=== PATIENT | female | born 1970 | race Caucasian/White ===

== ENCOUNTER → 2017-12-04 | Outpatient (CLI) | payer OTHER | LOC: M RAD 08:30 | DX: R10.9 Unspecified abdominal pain (principal) ==

== ENCOUNTER → 2019-01-05 | Outpatient (CLI) | payer OTHER ==
[~2019-01-05] MED LIST: CELE1CAP4 PO; CLON0.5T8 PO; DICL13PA TD; FOLI1TAB11 PO; ISOVUE-370 76% 100ML VIAL (Q9967) As Ordered ONE; LAMO200T2 PO; LIDO1PAD TOP; NEUR300C PO; OYST1TAB PO; PRENTAB43 PO; TOPA100T12 PO; TOPA200T7 PO
--- NOTE | 2019-01-06 04:27 | REP ---
Clinical: Left upper quadrant pain. Technique: Axial contrast enhanced images from the lung bases to the pubic symphysis using 100 ml Isovue 370 intravenous contrast material with coronal and sagittal re-formations. Comparison: 12/04/2017. Findings: Lung bases are clear. Visualized heart and pericardium normal. Liver, spleen, pancreas, bilateral adrenal glands and kidneys are normal. Splenic calcification likely represents prior granulomatous disease. The patient is status post cholecystectomy. The enteric system is without obstruction or acute inflammatory process. A small sub centimeter fat containing periumbilical hernia is suggested. Pelvis demonstrates normal bladder and evidence for prior partial hysterectomy. Small right ovarian cysts likely physiologic. No ascites. No free air. No obvious adenopathy. Abdominal aorta without aneurysm or dissection. Musculoskeletal structures without focal osseous abnormality. Impression: 1. No acute abdominopelvic pathology appreciated. 2. Evidence of prior cholecystectomy and partial hysterectomy. 3. Subcentimeter fat containing periumbilical hernia. Electronically Signed by Enrico Juarez MD 01/06/2019 04:18 A
== END ==
LOC: M RAD 15:30
PROVIDERS: ATTEND Internal Medicine
DX: K42.9 Umbilical hernia without obstruction or gangrene (principal); Z90.49 Acquired absence of other specified parts of digestive tract; Z90.79 Acquired absence of other genital organ(s)
CPT/HCPCS: 74177; Q9967

== ENCOUNTER → 2019-02-23 | Outpatient (CLI) | payer OTHER ==
[~2019-02-23] MED LIST changes: -ISOVUE-370 76% 100ML VIAL (Q9967) As Ordered ONE
--- NOTE | 2019-02-23 13:23 | REPMRS ---
Patient History The patient states she has not had a clinical breast exam in over a year. Family history of breast cancer in maternal aunt, breast cancer at age 39 in sister. Digital Mammo Screening Bilat: February 23, 2019 - Exam #: [id number] Bilateral CC and MLO view(s) were taken. Technologist: Any [employer] Technologist Prior study comparison: February 01, 2018, digital mammo diagnostic bilateral performed at [facility]. November 23, 2015, bilateral digital mammo screening bilat performed at [facility]. FINDINGS: The breast tissue is extremely dense which could obscure a lesion on mammography. There is no evidence of cancer on this mammogram. No significant changes when compared with prior studies. Assessment: BI-RADS/ACR category 2 mammogram. Benign Findings. Recommendation Routine screening mammogram of both breasts in 1 year (for women over age 40). This mammogram was interpreted with the aid of an FDA-approved computer-aided dectection system. THE LIFETIME RISK OF BREAST CANCER IS 21.4%, THEREFORE SUPPLEMENTAL SCREENING MRI OF THE BREASTS IS RECOMMENDED IN 6 MONTHS. Electronically Signed By: Robin Ledbetter MD 02/23/19 [id number]
== END ==
LOC: M RAD 10:34
PROVIDERS: ATTEND Internal Medicine
DX: Z12.31 Encounter for screening mammogram for malignant neoplasm of breast (principal); Z80.3 Family history of malignant neoplasm of breast

== ENCOUNTER → 2019-05-20 | Outpatient (CLI) | payer OTHER ==
[~2019-05-20] MED LIST changes: +PROHANCE 279.3MG/ML 5ML VIAL (A9576) As Ordered ONE
--- NOTE | 2019-05-20 12:04 | REP ---
MRI BILATERAL BREASTS WITH AND WITHOUT CONTRAST: COMPARISON: MRI 03/22/2015 and mammogram 02/23/2019. History of dense breasts. Lifetime risk of breast cancer, 21.4%. Family history of breast cancer in maternal aunt and sister. TECHNIQUE: Multiple sequences obtained in the axial, coronal, and sagittal planes prior to and following the intravenous administration of 10 mL ProHance. Images are evaluated in [employer] software, including axial T1 fat sat dynamic post-minesh images, subtraction images, CAD images, color overlay images, and MIP reconstruction images. There is an extreme pattern of fibroglandular tissue again seen bilaterally. There is moderate background parenchymal enhancement. Several small cysts are seen bilaterally. The largest is on the right medially measuring about 6 mm in diameter. Dilated ducts are seen in the left retroareolar region. There are small scattered hyperintense nodules, which demonstrate a persistent-type enhancement, consistent with small fibroadenomas. No suspicious enhancing mass is seen. No morphologic abnormality is seen. No axillary adenopathy is seen. IMPRESSION: BI-RADS category 2, benign bilateral breast MRI. Small cysts and fibroadenomas bilaterally. No suspicious enhancing mass or morphologic abnormality. Yearly supplemental screening MRI of the breasts is recommended for patients with lifetime risk of breast cancer of 20% or greater. Electronically Signed by Robin Ledbetter MD 05/24/2019 05:28 P
== END ==
LOC: M RAD 09:42
PROVIDERS: ATTEND Internal Medicine
DX: Z85.3 Personal history of malignant neoplasm of breast (principal)
CPT/HCPCS: A9576; C8908

== ENCOUNTER 2019-08-08 09:37 | Day surgery (SDC) | payer OTHER ==
[~2019-08-08] VITALS: Ht 162.6 cm; Wt 55.1 kg
[~2019-08-08 09:37] MED LIST changes: +KP P1TAB PO; +NS 1,000 ML IV ONE; -PROHANCE 279.3MG/ML 5ML VIAL (A9576) As Ordered ONE
[2019-08-08] MEDS ORDERED: PROPOFOL 200 MG/20 ML VIAL As Ordered ONE ×2 (10:00→11:56)
[2019-08-08] MEDS ORDERED: LIDOCAINE 2% INJ 100 MG/5 ML SDV (FOR ANES.) As Ordered ONE (10:00)
[2019-08-08] MEDS ORDERED: DOXY100C PO (10:01)
--- NOTE | 2019-08-08 11:20 | ROOR ---
Patient Name: Jalyn Tenorio Procedure Date: 08/08/2019 10:56 AM Date of : 1970 Age: 49 Room: [facility] Gender: Female Note Status: Finalized Procedure: Total Colonoscopy to Cecum Indications: Screening for colorectal malignant neoplasm Providers: Federico Nassar MD Referring MD: BERTRAM BURDEN MD Requesting Provider: Medicines: Monitored Anesthesia Care Complications: No immediate complications. Procedure: Pre-Anesthesia Assessment: - The heart rate, respiratory rate, oxygen saturations, blood pressure, adequacy of pulmonary ventilation, and response to care were monitored throughout the procedure. The Colonoscope was introduced through the anus and advanced to the cecum, identified by appendiceal orifice and ileocecal valve. The colonoscopy was performed without difficulty. The patient tolerated the procedure well. The quality of the bowel preparation was excellent. Findings: The perianal and digital rectal examinations were normal. Non-bleeding internal hemorrhoids were found during retroflexion. The hemorrhoids were small and Grade I (internal hemorrhoids that do not prolapse). No other significant abnormalities were identified in a careful examination of the remainder of the colon. The exam was otherwise without abnormality on direct and retroflexion views. Impression: - Non-bleeding internal hemorrhoids. - The examination was otherwise normal on direct and retroflexion views. - No specimens collected. - The exam was otherwise normal to the cecum. Recommendation: - Patient has a contact number available for emergencies. The signs and symptoms of potential delayed complications were discussed with the patient. Return to normal activities tomorrow. Written discharge instructions were provided to the patient. - High fiber diet. - Discharge patient to home. - Continue present medications. - Repeat colonoscopy in 10 years for screening purposes. - Return to referring physician. - The findings and recommendations were discussed with the patient's family. Federico Nassar MD Federico Nassar MD 08/08/2019 11:20:11 AM Electronically signed by Federico Nassar MD Number of Addenda: 0 Note Initiated On: 08/08/2019 10:56 AM Estimated Blood Loss: Estimated blood loss: none.
[2019-08-08 11:40] VITALS: BP 86/50
== END 2019-08-08 11:53 | disposition home or self-care (01) ==
LOC: M OPP 09:37
PROVIDERS: ATTEND Internal Medicine Gastroenterology
DX: Z12.11 Encounter for screening for malignant neoplasm of colon (principal); K64.0 First degree hemorrhoids; Z88.2 Allergy status to sulfonamides; Z88.8 Allergy status to other drugs, medicaments and biological substances; Z87.891 Personal history of nicotine dependence

== ENCOUNTER → 2020-03-27 | Outpatient (CLI) | payer OTHER ==
[~2020-03-27] MED LIST changes: +CLON0.5T2 PO; -CLON0.5T8 PO; +DOXY100C PO; -LAMO200T2 PO; +LAMO200T3 PO; +LINZ145C PO; +LOVA1CAP17 PO; -NS 1,000 ML IV ONE; +OXYC1TAB23 PO; +RA T500C2 PO; +STOO1CAP PO; +[UNRECOGNIZED DRUG - OTHER]
[2020-03-27 15:22] LABS: BASO # 0.1 10^3/uL (0.0-0.2); BASO % 0.9 % (0.0-1.0); EOS # 0.1 10^3/uL (0.0-0.5); EOS % 2.1 % (0.0-3.0); HEMATOCRIT 42.1 % (36.0-47.0); HEMOGLOBIN 13.9 g/dl (12.0-15.5); LYMPH # 2.2 10^3/uL (1.5-5.0); LYMPH % 42.2 % (24.0-44.0); MEAN CORPUSCULAR HEMOGLOBIN 30.5 pg (27.0-33.0); MEAN CORPUSCULAR VOLUME 92.5 fl (80.0-96.0); MONO # 0.6 10^3/uL (0.0-0.8); MONO % 11.6 % (0.0-5.0); NEUTROPHILS # 2.3 10^3/uL (1.5-8.5); NEUTROPHILS % 42.8 % (36.0-66.0); PLATELET COUNT, AUTOMATED 300 10^3/uL (150-450); RED BLOOD COUNT 4.55 10^6/uL (4.00-5.40); WHITE BLOOD COUNT 5.3 10^3/uL (4.0-10.0)
[2020-03-27 15:35] LABS: ALBUMIN 4.1 GM/DL (3.2-5.2); ALT/SGPT 21 U/L (12-78); BILIRUBIN,TOTAL 0.3 MG/DL (0.2-1.0); BLOOD UREA NITROGEN 16 MG/DL (7-18); C REACTIVE PROTEIN QUANTITATIV < 0.30 MG/DL (0.00-0.30); CALCIUM LEVEL 8.9 MG/DL (8.5-10.1); CARBON DIOXIDE LEVEL 24 MEQ/L (21-32); CHLORIDE LEVEL 110 MEQ/L (98-107); CREATININE FOR GFR 0.88 MG/DL (0.55-1.30); GLOMERULAR FILTRATION RATE > 60.0 (>58); GLUCOSE, FASTING 74 MG/DL (70-100); SODIUM LEVEL 137 MEQ/L (136-145); TOTAL PROTEIN 7.1 GM/DL (6.4-8.2)
[2020-03-27 15:48] LABS: ERYTHROCYTE SEDIMENTATION RATE 2 mm/hr (0-20)
== END ==
LOC: M WUC 09:07
PROVIDERS: ATTEND Internal Medicine Medical Oncology
DX: I82.90 Acute embolism and thrombosis of unspecified vein (principal)

== ENCOUNTER 2020-04-04 10:10 | Day surgery (SDC) | payer OTHER ==
[~2020-04-04] VITALS: Ht 162.6 cm; Wt 57.6 kg
[~2020-04-04 10:10] MED LIST changes: +ACETAMINOPHEN *IV* 1,000 MG IV ONE; +LIDOCAINE 1% MDV 20ML VIAL SQ PRN; +LR 1,000 ML IV SCH; -OXYC1TAB23 PO; +ceFAZolin SOD 2 GM in IV 1 EA IV ONE
[2020-04-04 10:38] LABS: HEMOGLOBIN 13.3 g/dl (12.0-15.5); MEAN CORPUSCULAR HEMOGLOBIN 31.3 pg (27.0-33.0); MEAN CORPUSCULAR HGB CONC 34.1 g/dl (32.0-36.5); MEAN CORPUSCULAR VOLUME 91.8 fl (80.0-96.0); PLATELET COUNT, AUTOMATED 294 10^3/uL (150-450); RED BLOOD COUNT 4.25 10^6/uL (4.00-5.40)
[2020-04-04] MEDS ORDERED: MIDAZOLAM INJ 2MG/2ML VIAL (J2250 PER 1MG) As Ordered ONE (11:28)
[2020-04-04] MEDS ORDERED: fentaNYL 100 MCG/2 ML INJECTION (J3010) As Ordered ONE (11:29)
[2020-04-04] MEDS ORDERED: propofoL 200 MG/20 ML VIAL As Ordered ONE (11:30)
[2020-04-04] MEDS ORDERED: LIDOCAINE 2% 100MG/5ML SDV (FOR ANES.) As Ordered ONE (11:33)
[2020-04-04] MEDS ORDERED: dexameTHASONE 4 MG/ML 1ML VIAL (J1100 PER 1MG) As Ordered ONE (11:35)
[2020-04-04] MEDS ORDERED: LIDOCAINE W/EPINEPHRINE 1% 20ML VIAL As Ordered ONE (11:49)
[2020-04-04] MEDS ORDERED: ONDANSETRON 4MG/2ML VIAL As Ordered ONE (12:18)
[2020-04-04] MEDS ORDERED: KETOROLAC 60 MG/2 ML VIAL As Ordered ONE (12:19)
[2020-04-04] MEDS ORDERED: OXYC1TAB23 PO (12:59)
[2020-04-04] MEDS ORDERED: PERCOCET 5MG/325MG TAB As Ordered ONE (13:11)
[2020-04-04] MEDS ORDERED: METOCLOPRAMIDE INJ 10MG/2ML VIAL (J2765 PER 1) IV PRN (13:15)
[2020-04-04] MEDS ORDERED: fentaNYL 100 MCG/2 ML INJECTION (J3010) IV PRN (13:15)
[2020-04-04] MEDS ORDERED: LR 1,000 ML IV SCH (13:15)
[2020-04-04] MEDS: PERCOCET 5MG/325MG TAB PO PRN ×2 (13:20→16:07)
[2020-04-04] MEDS ORDERED: PERCOCET 5MG/325MG TAB PO PRN (13:30)
[2020-04-04 17:10] VITALS: BP 115/53
--- NOTE | 2020-04-09 13:38 | RO ---
DATE OF PROCEDURE: 04/04/2020 Jalyn is a 49-year-old female with a history of stress urinary incontinence. The patient has a prior history of vaginal hysterectomy with a Bajwa procedure and anterior-posterior repair. After extensive counseling and urodynamics in the office, a decision was made to proceed with a tension-free vaginal taping via an obturator approach and cystoscopy. PREOPERATIVE DIAGNOSIS: Stress urinary incontinence. POSTOPERATIVE DIAGNOSIS: Stress urinary incontinence. PROCEDURE: 1. Tension-free vaginal taping via an obturator approach. 2. Cystoscopy. SURGEON: Dr. Zenon Sanchez SQL TECH: ANESTHESIA: LMA. COMPLICATIONS: None. ESTIMATED BLOOD LOSS: Less than 30 mL. DESCRIPTION OF PROCEDURE: After obtaining informed consent, the patient was taken to the operating room where the anesthetic was found to be adequate. She was then draped and prepped in the usual sterile fashion in the dorsal lithotomy position. At this point, a Barrera catheter was placed in the bladder for drainage. We then marked with a marking pen the level of urethral meatus and 2 cm above that a parallel line was drawn with the exit britta for the TVT drawn 2 cm away from the medial wall of the groin. The opposite side was marked in a similar fashion. At this point, two Allis' were used at the level of 2-3 cm below the urethral meatus. A diluted solution of Pitressin was used under that area as well as the exit britta at the lateral thight. A 5 mm incision was made. Using the Metzenbaum the obturator foramen was punctured. The winged guide of the TVT device was inserted and the TVT device was inserted and exited at the predetermined britta. We then performed a cystoscopy. No evidence of any bladder injury was noted. The introducer was removed. The opposite side was done in a similar fashion and again a cystoscopy performed. No bladder injury noted. The introducer removed. We then put in a Val clamp below the tension-free vaginal taping and the tension was then adjusted with Valsalva and bladder pressure. After proper placement of the Gynecare mesh, the excess sheath was removed and the excess tape was cut away on each side. The vaginal mucosa was then repaired using a #2-0 Vicryl suture and the exit britta at the lateral thigh was closed using Dermabond. The bladder completely emptied out. Good hemostasis noted. The patient tolerated procedure well. She was then transferred to recovery room in stable condition. EARLINE
== END 2020-04-04 17:20 | disposition home or self-care (01) ==
LOC: M SDC 10:10
PROVIDERS: ATTEND Obstetrics & Gynecology
DX: N39.3 Stress incontinence (female) (male) (principal); E05.00 Thyrotoxicosis with diffuse goiter without thyrotoxic crisis or storm; M79.7 Fibromyalgia; Z87.891 Personal history of nicotine dependence; G43.909 Migraine, unspecified, not intractable, without status migrainosus; F43.10 Post-traumatic stress disorder, unspecified; F31.9 Bipolar disorder, unspecified; F41.9 Anxiety disorder, unspecified; Z79.899 Other long term (current) drug therapy; Z88.2 Allergy status to sulfonamides; Z88.8 Allergy status to other drugs, medicaments and biological substances
CPT/HCPCS: 36415; 57288; 85027; 86850; 86900; 86901; C1771; J0690; J1100; J1885; J2250; J2405; J2765; J3010

== ENCOUNTER → 2020-04-18 | Outpatient (CLI) | payer OTHER ==
[~2020-04-18] MED LIST changes: -ACETAMINOPHEN *IV* 1,000 MG IV ONE; +GASTROGRAFIN SOLUTION 30ML (Q9963) As Ordered ONE; +ISOVUE-370 76% 100ML VIAL As Ordered ONE; -LIDOCAINE 1% MDV 20ML VIAL SQ PRN; -LR 1,000 ML IV SCH; +OXYC1TAB23 PO; -ceFAZolin SOD 2 GM in IV 1 EA IV ONE
--- NOTE | 2020-04-18 17:13 | REP ---
CT ABDOMEN PELVIS WITH IV AND ORAL CONTRAST: HISTORY: History of pituitary cancer. Assess pancreas. Adrenal glands. CT CONTRAST DOSE: 100 mL of intravenous Isovue 370. Comparison CT study is from January 05, 2019. CT FINDINGS: Preliminary digital napkin band wrapper radiograph is unremarkable. There are clips in the gallbladder fossa. The lung bases are clear. There is no evidence of pleural effusion or upper abdominal ascites. There is a granulomatous calcification in the anterior segment right lobe of the liver near the diaphragm unchanged. There is a small subcentimeter cyst in the posterior segment right lobe of the liver also unchanged from December 04, 2017 prior study. No focal liver mass lesion is seen. There is a granulomatous calcification in the spleen. Spleen is otherwise unremarkable. No pancreatic mass or cyst is seen. There is evidence of a small descending duodenal diverticulum. Normal adrenal glands. No evidence of abnormal pancreatic enhancement. The kidneys enhance symmetrically and are morphologically intact. No retroperitoneal mass or adenopathy is seen. Small and large intestinal bowel loops are unremarkable. Uterus is surgically absent. Urinary bladder is unremarkable. No abdominal wall defect is seen. Bone window settings show no bony destructive lesion. IMPRESSION: Post cholecystectomy and hysterectomy. Otherwise unremarkable CT abdomen and pelvis. Electronically Signed by Earl Cuba MD 04/19/2020 07:56 A
== END ==
LOC: M RAD 13:18
PROVIDERS: ATTEND Internal Medicine Hematology & Oncology
DX: R10.9 Unspecified abdominal pain (principal); K76.89 Other specified diseases of liver; Z85.89 Personal history of malignant neoplasm of other organs and systems; Z90.49 Acquired absence of other specified parts of digestive tract; Z90.710 Acquired absence of both cervix and uterus
CPT/HCPCS: 74177; 90834; Q9963; Q9967

== ENCOUNTER → 2020-04-23 | Outpatient (CLI) | payer OTHER ==
[~2020-04-23] MED LIST changes: -GASTROGRAFIN SOLUTION 30ML (Q9963) As Ordered ONE; -ISOVUE-370 76% 100ML VIAL As Ordered ONE
--- NOTE | 2020-04-23 12:50 | REP ---
Clinical: Bilateral lower extremity pain and swelling with elevated D-dimer levels . Technique: Ledbetter scale and color Doppler evaluation of the bilateral lower extremities using linear high frequency transducer. Findings: Ultrasound examination of the right and left lower extremity deep venous structures from the common femoral vein to the popliteal vein demonstrates normal compressibility flow and wave patterns in response to respiration and augmentation. There is no evidence for deep venous thrombosis. Impression: No evidence for deep venous thrombosis. Electronically Signed by Enrico Juarez MD 04/23/2020 12:41 P
== END ==
LOC: M LRY 09:07
PROVIDERS: ATTEND Internal Medicine Hematology & Oncology
DX: D68.9 Coagulation defect, unspecified (principal)

== ENCOUNTER → 2020-07-12 | Outpatient (CLI) | payer OTHER ==
--- NOTE | 2020-07-27 09:49 | REP ---
NASAL BONES SERIES: CLINICAL: Trauma. Pain. TECHNIQUE: Guillaume and bilateral lateral views of the nasal bones. FINDINGS: There is a subtle nondisplaced fracture through the nasal bone identified on lateral radiographs. IMPRESSION: Subtle nondisplaced fracture along the distal aspect of the nasal bones. MTDD
== END ==
LOC: M WUC 16:08
PROVIDERS: ATTEND Physician Assistant Medical
DX: S02.2XXA Fracture of nasal bones, initial encounter for closed fracture (principal); X58.XXXA Exposure to other specified factors, initial encounter; Y92.89 Other specified places as the place of occurrence of the external cause

== ENCOUNTER 2021-04-15 11:25 | Day surgery (SDC) | payer OTHER ==
[~2021-04-15] VITALS: Ht 162.6 cm; Wt 58.0 kg
[~2021-04-15 11:25] MED LIST changes: +DOCU240C41 PO; +LIDOCAINE 2% 100MG/5ML SDV (FOR ANES.) As Ordered ONE; +MAGN400T3 PO; +NS 1,000 ML IV ONE; -STOO1CAP PO; +propofoL 200 MG/20 ML VIAL As Ordered ONE
--- NOTE | 2021-04-15 13:20 | ROOR ---
Patient Name: Jalyn Tenorio Procedure Date: 04/15/2021 1:01 PM Date of : 1970 Age: 50 Room: [facility] Gender: Female Note Status: Finalized Procedure: Upper Endoscopy + Biopsies Indications: Sore throat Providers: Federico Nassar MD Referring MD: Kenya STRICKLAND MD Requesting Provider: Medicines: Monitored Anesthesia Care Complications: No immediate complications. Procedure: Pre-Anesthesia Assessment: - The heart rate, respiratory rate, oxygen saturations, blood pressure, adequacy of pulmonary ventilation, and response to care were monitored throughout the procedure. The Endoscope was introduced through the mouth, and advanced to the second part of duodenum. The upper GI endoscopy was accomplished without difficulty. The patient tolerated the procedure well. Findings: The Z-line was regular and was found 40 cm from the incisors. Multiple biopsies were obtained with cold forceps for evaluation to rule out Shin's Esophagus randomly at the gastroesophageal junction. Mucosal changes including ringed esophagus were found in the lower third of the esophagus. Biopsies were taken with a cold forceps for histology. No other significant abnormalities were identified in a careful examination of the stomach. The exam of the duodenum was otherwise normal. The posterior oropharynx is erythematous. The exam was otherwise without abnormality. Impression: - Z-line regular, 40 cm from the incisors. - Esophageal mucosal changes suggestive of eosinophilic esophagitis. Biopsied. - The posterior oropharynx is erythematous. - The examination was otherwise normal. - Multiple biopsies were obtained at the gastroesophageal junction. - The examination was otherwise normal. Recommendation: - Await pathology results. - Discharge patient to home. - Follow an antireflux regimen. - Continue present medications. - Resume previous diet. - Return to referring physician. - Telephone GI clinic for pathology results in 1 week. - The findings and recommendations were discussed with the patient's family. Procedure Code(s): --- Professional --- 24846, Esophagogastroduodenoscopy, flexible, transoral; with biopsy, single or multiple Diagnosis Code(s): --- Professional --- K22.8, Other specified diseases of esophagus J39.2, Other diseases of pharynx J02.9, Acute pharyngitis, unspecified CPT copyright 2019 [employer]. All rights reserved. The codes documented in this report are preliminary and upon lens grinder review may be revised to meet current compliance requirements. Federico Nassar MD Federico Nassar MD 04/15/2021 1:20:26 PM Electronically signed by Federico Nassar MD Number of Addenda: 0 Note Initiated On: 04/15/2021 1:01 PM Estimated Blood Loss: Estimated blood loss: none.
[2021-04-15 13:44] VITALS: BP 105/57
== END 2021-04-15 13:46 | disposition home or self-care (01) ==
LOC: M OPP 11:25
PROVIDERS: ATTEND Internal Medicine Gastroenterology
DX: K22.8 Other specified diseases of esophagus (principal); J39.2 Other diseases of pharynx; J02.9 Acute pharyngitis, unspecified; R13.10 Dysphagia, unspecified; K21.9 Gastro-esophageal reflux disease without esophagitis; Z79.899 Other long term (current) drug therapy; Z88.2 Allergy status to sulfonamides; Z88.8 Allergy status to other drugs, medicaments and biological substances; Z87.891 Personal history of nicotine dependence

== ENCOUNTER → 2022-08-13 | Outpatient (CLI) | payer OTHER ==
[~2022-08-13] MED LIST changes: -DOXY100C PO; +DOXY100C3 PO; -LIDOCAINE 2% 100MG/5ML SDV (FOR ANES.) As Ordered ONE; -MAGN400T3 PO; +MAGN400T33 PO; -NS 1,000 ML IV ONE; -propofoL 200 MG/20 ML VIAL As Ordered ONE
== END ==
LOC: M RAD 12:26
PROVIDERS: ATTEND Obstetrics & Gynecology
DX: R10.2 Pelvic and perineal pain (principal)

== ENCOUNTER → 2022-10-15 | Outpatient (CLI) | payer OTHER ==
[2022-10-15 12:22] LABS: APPEARANCE, URINE MANUAL CLEAR (CLEAR); COLOR, URINE MANUAL YELLOW (YELLOW)
[2022-10-15 12:24] LABS: BILIRUBIN, URINE MANUAL NEGATIVE (NEGATIVE); BLOOD URINE MANUAL NEGATIVE (NEGATIVE); GLUCOSE, URINE (UA) MANUAL NEGATIVE (NEGATIVE); KETONE, URINE MANUAL NEGATIVE (NEGATIVE); LEUKOCYTE ESTERASE, URINE MAN NEGATIVE (NEGATIVE); NITRITE, URINE MANUAL NEGATIVE (NEGATIVE); PROTEIN, URINE MANUAL NEGATIVE (NEGATIVE); UROBILINOGEN, URINE MANUAL NORMAL (NORMAL)
[2022-10-15 12:28] LABS: HEMATOCRIT 41.1 % (36.0-47.0); MEAN CORPUSCULAR HGB CONC 31.6 g/dl (32.0-36.5); MEAN CORPUSCULAR VOLUME 94.7 fl (80.0-96.0); PLATELET COUNT, AUTOMATED 275 10^3/uL (150-450); RED BLOOD COUNT 4.34 10^6/uL (4.00-5.40); WHITE BLOOD COUNT 4.5 10^3/uL (4.0-10.0)
[2022-10-15 12:39] LABS: ERYTHROCYTE SEDIMENTATION RATE 2 mm/hr (0-30)
[2022-10-15 13:03] LABS: C REACTIVE PROTEIN QUANTITATIV < 0.40 MG/DL (<1.0)
[2022-10-15 13:04] LABS: ALBUMIN 4.2 G/DL (3.2-5.2); ALKALINE PHOSPHATASE 51 U/L (46-116); ALT/SGPT 12 U/L (7.0-40); AST/SGOT 14 U/L (<34); BILIRUBIN,TOTAL 0.5 MG/DL (0.3-1.2); BLOOD UREA NITROGEN 15 MG/DL (9-23); CALCIUM LEVEL 8.8 MG/DL (8.5-10.1); CARBON DIOXIDE LEVEL 26 MMOL/L (20-31); CHLORIDE LEVEL 106 MMOL/L (98-107); CHOLESTEROL LEVEL 207 MG/DL (<200); CREATININE FOR GFR 0.84 MG/DL (0.55-1.30); GLOMERULAR FILTRATION RATE > 60.0 (>51); GLUCOSE, FASTING 87 MG/DL (60-100); HDL CHOLESTEROL 50.4 MG/DL (>40); LDL CHOLESTEROL 141.2 MG/DL (<100); NON-HDL-C 157 MG/DL; POTASSIUM SERUM 3.6 MMOL/L (3.5-5.1); SODIUM LEVEL 140 MMOL/L (136-145); TOTAL PROTEIN 6.7 G/DL (5.7-8.2); TRIGLYCERIDES LEVEL 77 MG/DL (<150)
[2022-10-15 13:05] LABS: RHEUMATOID FACTOR QUANT < 3.5 IU/ML (<14)
[2022-10-15 14:01] LABS: HEMOGLOBIN A1c 4.6 % (4.0-6.0)
[2022-10-16 23:07] LABS: ANA (HEP2) Negative (.); CYCLIC CITRULLINATED PEPTIDE 4 units (0-19); SSA SJOGRENS A <0.2 AI (0.0-0.9); SSB SJOGRENS B <0.2 AI (0.0-0.9)
== END ==
LOC: M WUC 09:29
PROVIDERS: ATTEND Internal Medicine
DX: M79.7 Fibromyalgia (principal); Z79.899 Other long term (current) drug therapy; Z13.1 Encounter for screening for diabetes mellitus

== ENCOUNTER → 2022-11-27 | Outpatient (CLI) | payer OTHER | LOC: M RAD 09:47 | PROVIDERS: ATTEND Nurse Practitioner Family | DX: R93.2 Abnormal findings on diagnostic imaging of liver and biliary tract (principal) ==

== ENCOUNTER → 2023-03-11 | Outpatient (CLI) | payer OTHER ==
[2023-03-11 15:07] LABS: BASO # 0.1 10^3/uL (0.0-0.2); BASO % 1.3 % (0.0-1.0); EOS # 0.1 10^3/uL (0.0-0.5); EOS % 1.5 % (0.0-3.0); HEMATOCRIT 40.7 % (36.0-47.0); HEMOGLOBIN 13.3 g/dl (12.0-15.5); LYMPH # 1.9 10^3/uL (1.5-5.0); LYMPH % 41.1 % (24.0-44.0); MEAN CORPUSCULAR HEMOGLOBIN 31.1 pg (27.0-33.0); MEAN CORPUSCULAR HGB CONC 32.7 g/dl (32.0-36.5); MEAN CORPUSCULAR VOLUME 95.1 fl (80.0-96.0); MONO # 0.4 10^3/uL (0.0-0.8); MONO % 9.3 % (2.0-8.0); NEUTROPHILS # 2.2 10^3/uL (1.5-8.5); NEUTROPHILS % 46.8 % (36.0-66.0); PLATELET COUNT, AUTOMATED 282 10^3/uL (150-450); RED BLOOD COUNT 4.28 10^6/uL (4.00-5.40); WHITE BLOOD COUNT 4.7 10^3/uL (4.0-10.0)
[2023-03-11 15:39] LABS: ALBUMIN 4.2 G/DL (3.2-5.2); ALKALINE PHOSPHATASE 51 U/L (46-116); ALT/SGPT 16 U/L (7.0-40); AST/SGOT 12 U/L (<34); BILIRUBIN,TOTAL 0.5 MG/DL (0.3-1.2); BLOOD UREA NITROGEN 17 MG/DL (9-23); CALCIUM LEVEL 8.9 MG/DL (8.5-10.1); CARBON DIOXIDE LEVEL 25 MMOL/L (20-31); CHLORIDE LEVEL 109 MMOL/L (98-107); CREATININE FOR GFR 0.87 MG/DL (0.55-1.30); GLOMERULAR FILTRATION RATE > 60.0 (>51); GLUCOSE, FASTING 67 MG/DL (60-100); POTASSIUM SERUM 3.9 MMOL/L (3.5-5.1); SODIUM LEVEL 138 MMOL/L (136-145); THYROID STIMULATING HORMONE 1.336 uIU/ML (0.55-4.78); TOTAL 25(OH) VITAMIN D 26.3 NG/ML (20.0-100.0); TOTAL PROTEIN 6.5 G/DL (5.7-8.2)
[2023-03-11 15:40] LABS: FOLATE > 24.00 NG/ML (>5.4); VITAMIN B12 LEVEL 520 PG/ML (211-911)
== END ==
LOC: M WUC 11:54
PROVIDERS: ATTEND Psychiatry & Neurology Neurology
DX: R51.9 Headache, unspecified (principal); E53.8 Deficiency of other specified B group vitamins

== ENCOUNTER → 2023-07-08 | Outpatient (CLI) | payer OTHER | LOC: M PLAIMG 10:57 | PROVIDERS: ATTEND Otolaryngology | DX: J32.9 Chronic sinusitis, unspecified (principal) ==

== ENCOUNTER → 2023-11-10 | Outpatient (CLI) | payer OTHER | LOC: M PLAIMG 08:32 | PROVIDERS: ATTEND Internal Medicine Pulmonary Disease | DX: R91.8 Other nonspecific abnormal finding of lung field (principal); J84.10 Pulmonary fibrosis, unspecified; K76.89 Other specified diseases of liver ==